=== PATIENT | female | born 1940 | race Caucasian/White ===

== ENCOUNTER → 2016-07-27 | Outpatient (CLI) | payer MEDICARE, OTHER | LOC: GMAB 11:02 | PROVIDERS: ATTEND Family Medicine | DX: E03.9 Hypothyroidism, unspecified (principal) ==

== ENCOUNTER → 2017-05-02 | Outpatient (CLI) | payer MEDICARE, OTHER | END | disposition home or self-care (01) | LOC: GMAB 11:23 | PROVIDERS: ATTEND Family Medicine | DX: M79.1 Myalgia (principal); E11.9 Type 2 diabetes mellitus without complications ==

== ENCOUNTER → 2017-08-02 | Outpatient (CLI) | payer MEDICARE, OTHER | END | disposition home or self-care (01) | LOC: GMAB 10:16 | PROVIDERS: ATTEND Family Medicine | DX: E03.9 Hypothyroidism, unspecified (principal) ==

== ENCOUNTER → 2018-08-06 | Outpatient (CLI) | payer MEDICARE, OTHER | LOC: GMAE 11:05 | PROVIDERS: ATTEND Family Medicine | DX: E03.9 Hypothyroidism, unspecified (principal) ==

== ENCOUNTER 2019-01-15 08:19 | Observation (INO) | payer MEDICARE, OTHER ==
[2019-01-15] MEDS ORDERED: ATENOLOL 25 MG TAB PO ONE (08:37)
[2019-01-15] MEDS ORDERED: ATORVASTATIN 20 MG TAB PO ONE (08:37)
[2019-01-15] MEDS ORDERED: ASPIRIN (CHEWABLE) 81 MG TAB PO ONE (08:37)
--- NOTE | 2019-01-15 08:46 | ED.PDOC ---
History of Present Illness - General Chief Complaint: Chest Pain/NC Stated Complaint: Chest tightness Time Seen by Provider: 01/15/19 08:36 Source: patient, EMS Exam Limitations: no limitations - History of Present Illness Initial Comments: patient comes in today with sudden onset of chest tightness, shortness of breath, and nausea. Patient states she's been under a lot of emotional stress and this morning she woke up and started her basic activities around the home. She had is that about 6 AM, about 30 minutes after getting up, she started having chest pressure and tightness. She states she tries to get great big deep breath but that seemed to make it worse and she experienced some nausea. She does have diabetes she decided to try to eat something and had a little piece of cheese and some milk without any improvement. She denies any reflux or heartburn. She states she's never had this sensation before although in the past she has had several episodes of SVT this does not feel the same. Patient does have diabetes mellitus, hypertension and hyperlipidemia. Patient has never had a heart attack and she's never smoked. Patient received nitroglycerin in route and states that she does not feel the sensation any longer. Timing/Duration: 1-3 hours Severity/Quality: moderate, pressure, tightness Location: substernal Chest Pain Radiation: no radiation Activities at Onset: activity, emotional stress Prior Chest Pain/Cardiac Workup: no prior chest pain Improving Factors: medication - nitro given in ambulance Worsening Factors: other - taking a deep breath Nitro Today/Relief: 0.4 mg x 1, provided by EMS, complete relief Aspirin Treatment Today: 325 mg x 1, provided by ED Associated Symptoms: nausea/vomiting, shortness of breath Allergies/Adverse Reactions: Allergies Acetaminophen [From Vicodin] Allergy (Severe, Verified 09/09/12 11:11) Amantadine [From Symmetrel] Allergy (Severe, Verified 09/09/12 11:11) Cephalexin [From Keflex] Allergy (Severe, Verified 09/09/12 11:11) Hydrocodone [From Vicodin] Allergy (Severe, Verified 09/09/12 11:11) Home Medications: Ambulatory Orders Azithromycin [Zithromax Z-Sherman] 1 ea PO DAILY #1 pack 07/06/14 Review of Systems - Review of Systems Constitutional: States: no symptoms reported. Denies: chills, fever, malaise EENTM: States: no symptoms reported. Denies: eye pain, ear pain, nose congestion, throat pain Respiratory: States: short of breath. Denies: cough, wheezing Cardiology: States: chest pain. Denies: edema, palpitations, syncope Gastrointestinal/Abdominal: States: nausea. Denies: abdominal pain, constipation, diarrhea, vomiting Genitourinary: States: no symptoms reported Musculoskeletal: States: no symptoms reported Skin: States: no symptoms reported Neurological: States: anxiety Past Medical History (General) - Patient Medical History Hx Seizures: No Hx Stroke: No Hx Dementia: No Hx Asthma: No Hx of COPD: No Hx Cardiac Disorders: Yes - High cholesterol; hx SVT Hx Congestive Heart Failure: No Hx Pacemaker: No Hx Hypertension: Yes Hx Thyroid Disease: Yes Hx Diabetes: Yes Hx Gastroesophageal Reflux: No Hx Renal Disease: No Hx Cancer: No Hx of HIV: No Hx Hepatitis C: No Hx MRSA: No Surgical History: cholecystectomy, Hysterectomy - Vaccination History Hx Influenza Vaccination: Yes - 2018 Hx Pneumococcal Vaccination: Yes - Social History Hx Tobacco Use: No Hx Alcohol Use: No Hx Substance Use: No Hx Substance Use Treatment: No Hx Depression: No Family Medical History - Family History Mother Family History: No Known Physical Exam - Physical Exam General Appearance: Alert, Anxious, Comfortable Eyes, Ears, Nose, Throat Exam: PERRL/EOMI, normal ENT inspection, TMs normal, pharynx normal Neck: non-tender, full range of motion, supple, normal inspection Respiratory: chest non-tender, lungs clear, normal breath sounds, no respiratory distress Cardiovascular/Chest: normal peripheral pulses, regular rate, rhythm, no edema, no gallop, no JVD, no murmur Peripheral Pulses: radial,right: 2+, radial,left: 2+ Gastrointestinal/Abdominal: normal bowel sounds, non tender, soft, no organomegaly Extremity: non-tender, normal inspection Neurologic: alert, oriented x 3 Skin Exam: normal color Lymphatic: no adenopathy Progress - Progress Progress: 01/15/19 09:21 patient remains asymptomatic since nitro was given en route. Explained all results reassuring and need to recheck chest xray. Plan to repeat enzymes in several hours and if normal call for observation. - Results/Orders Results/Orders: 01/15/19 08:45 EKG STAT 01/15/19 11:35 [facility] [employer] Stat Laboratory Results WBC 7.8 K/mm3 (4.8-10.8) 01/15/19 07:52 RBC 4.70 M/mm3 (4.20-5.40) 01/15/19 07:52 Hgb 14.9 gm/dL (12.0-16.0) 01/15/19 07:52 Hct 44.1 % (36.0-47.0) 01/15/19 07:52 MCV 93.8 fl (81.0-99.0) 01/15/19 07:52 MCH 31.7 pg (27.0-31.0) H 01/15/19 07:52 MCHC 33.9 g/dL (33.0-37.0) 01/15/19 07:52 RDW 13.7 % (11.5-14.5) 01/15/19 07:52 Plt Count 211 K/mm3 (130-400) 01/15/19 07:52 MPV 9.7 fl (7.40-10.4) 01/15/19 07:52 Absolute Neuts (auto) 4.00 K/uL (1.8-6.8) 01/15/19 07:52 Absolute Lymphs (auto) 3.00 K/uL (1.0-3.4) 01/15/19 07:52 Absolute Monos (auto) 0.60 K/uL (0.2-0.8) 01/15/19 07:52 Absolute Eos (auto) 0.20 K/uL (0.0-0.4) 01/15/19 07:52 Absolute Basos (auto) 0.10 K/uL (0.0-0.1) 01/15/19 07:52 Neutrophils % 51.1 % (42.0-78.0) 01/15/19 07:52 Lymphocytes % 38.3 % (20.0-50.0) 01/15/19 07:52 Monocytes % 7.6 % (2.0-9.0) 01/15/19 07:52 Eosinophils % 2.0 % (1.0-5.0) 01/15/19 07:52 Basophils % 1.0 % (0.0-2.0) 01/15/19 07:52 PT 10.4 SECONDS (9.0-10.9) 01/15/19 07:52 INR 1.04 (0.9-1.15) 01/15/19 07:52 PTT (SP) 24.9 SECONDS (21.8-31.6) 01/15/19 07:52 Sodium 138 mmol/L (135-145) 01/15/19 07:52 Potassium 3.4 mmol/L (3.6-5.0) L 01/15/19 07:52 Chloride 102 mmol/L (101-111) 01/15/19 07:52 Carbon Dioxide 26 mmol/L (21-31) 01/15/19 07:52 Anion Gap 13.4 (12-18) 01/15/19 07:52 BUN 14 mg/dL (7-18) 01/15/19 07:52 Creatinine 0.49 mg/dL (0.6-1.3) L 01/15/19 07:52 BUN/Creatinine Ratio 28.6 (10-20) H 01/15/19 07:52 Random Glucose 236 mg/dL (70-105) H 01/15/19 07:52 Serum Osmolality 283.8 mOsm/L (275-295) 01/15/19 07:52 Calcium 10.6 mg/dL (8.4-10.2) H 01/15/19 07:52 Magnesium 2.0 mg/dL (1.8-2.5) 01/15/19 07:52 Total Bilirubin 0.7 mg/dL (0.2-1.0) 01/15/19 07:52 AST 22 IU/L (10-42) 01/15/19 07:52 ALT 27 IU/L (10-60) 01/15/19 07:52 Alkaline Phosphatase 98 IU/L (42-121) 01/15/19 07:52 Creatine Kinase 37 IU/L (26-140) 01/15/19 11:35 CK-MB (CK-2) 1.8 ng/mL (0.0-4.4) 01/15/19 07:52 CK-MB (CK-2) % Not Reportable 01/15/19 07:52 Troponin I < 0.02 ng/mL (0.01-0.05) 01/15/19 11:35 Serum Total Protein 7.2 gm/dL (6.4-8.2) 01/15/19 07:52 Albumin 3.7 g/dl (3.2-5.5) 01/15/19 07:52 Globulin 3.5 gm/dL (2.3-3.5) 01/15/19 07:52 Albumin/Globulin Ratio 1.1 (1.1-1.9) 01/15/19 07:52 chest xray normal - EKG/XRAY/CT EKG: Sinus, nonspecific ST T wave Chg, Changed from - st changes improved but still present compared to 07/06 HR 66, normal axis Departure - Departure Clinical Impression: Chest pain Qualifiers: Chest pain type: unspecified Qualified Code(s): R07.9 - Chest pain, unspecified Disposition: Admit Patient Condition: Good Departure Forms: ED Discharge - Pt. Copy, Patient Portal Self Enrollment Instructions: DI for Chest Pain Diet: diabetic diet Referrals: DARLENE HENSLEY MD [Primary Care Provider] - 1-2 Weeks Home Medications: Ambulatory Orders Azithromycin [Zithromax Z-Sherman] 1 ea PO DAILY #1 pack 07/06/14 Decision To Admit - Decistion To Admit Decision to Admit Reason: Admit from ER Decision to Admit Date: 01/15/19 Decision to Admit Time: 12:18
--- NOTE | 2019-01-15 09:01 | RAD ---
EXAM DESCRIPTION: Chest,1 View CLINICAL HISTORY: 78 years Female, chest pain COMPARISON: None. TECHNIQUE: AP portable chest. FINDINGS: Fair expansion of the lungs is evident without consolidation, layering effusion, or large mass. A probable nipple shadow overlies the left lateral lung base. When able departmental PA and lateral examination recommended for repeat evaluation. Heart size and vascularity is upper range of normal without overt failure. Aorta is calcified and tortuous. No gross bony, hilar, or mediastinal abnormalities are noted. IMPRESSION: 1. Upper normal heart size and vascularity without overt failure. 2. Probable nipple shadow left lateral lung base without dense consolidation. Follow-up departmental PA and lateral study when able recommended. Electronically signed by: Stevan Parra MD 01/15/2019 8:59 AM CDT
--- NOTE | 2019-01-15 10:19 | RAD ---
EXAM DESCRIPTION: XR CHEST 2 VIEWS CLINICAL HISTORY: Abnormal radiograph. Nodular density on previous chest radiograph COMPARISON: 01/15/2019 TECHNIQUE: PA/lateral FINDINGS: Repeat study with nipple markers. The previous nodular density was indeed a nipple shadow. There are no true pulmonary parenchymal nodules Normal heart size. Mildly tortuous atherosclerotic aorta. No pulmonary edema, infiltrate or effusions. Mild hyperinflation No acute bony abnormality IMPRESSION: No pulmonary nodules or other acute cardiopulmonary process Electronically signed by: Stevan Philip MD 01/15/2019 10:17 AM CDT
--- NOTE | 2019-01-15 13:10 | HP ---
SUPERVISING PHYSICIAN: Shashank Langley MD CHIEF COMPLAINT: Chest pain. HISTORY OF PRESENT ILLNESS: This is a 78-year-old female patient who had some stressful situations that went on with her son that started about two weeks ago. She had had some car trouble and was asking her son to help with the expenses and they got into an argument. She has been stressing over the situation for about two weeks and has progressively worsened. This morning, she woke up about 5 AM and decided to clean out her closet because she has been under so much stress and was worrying about her son. It was difficult to take a deep breath, but she said there was no shortness of breath. There was no diaphoresis. The chest pain was substernal. It did not worsen with exertion. She said it was just some chest pressure and tightness. It actually got worse during the morning and she could not get a deep breath. She decided to come to the Emergency Room and her vital signs on admission showed temperature 97.1, heart rate 68, blood pressure 117/73, respiratory rate 16, O2 saturation 98% on room air. She was given a nitroglycerin en route and once she got to the Emergency Room, there were no further complaints of chest pain. There were no EKG changes and her CBC was basically unremarkable. Her PT and PTT were also within normal limits. Her electrolytes were within normal limits except potassium was slightly low at 3.4 and calcium slightly high at 10.6. Her initial cardiac enzymes were negative. About two hours later, a second set of cardiac enzymes were also negative. Chest x-ray showed no pulmonary nodules or other acute pulmonary process. I was called for hospital admission. PAST MEDICAL HISTORY: 1. Supraventricular tachycardia. 2. Diabetes mellitus, type 2. 3. Hypothyroidism. 4. Hyperlipidemia. 5. Hypertension. PAST SURGICAL HISTORY: 1. Hysterectomy. 2. Cholecystectomy. ALLERGIES: AMANTADINE, CEPHALEXIN, HYDROCODONE. SOCIAL HISTORY: She lives in [place] alone. She has a son that lives in [place]. She has one son that is . She denies any tobacco, ETOH or illicit drug use. REVIEW OF SYSTEMS: GENERAL: Negative for fever, fatigue or weight changes. HEENT: Negative for sinus symptoms, ear pain, eye pain or sore throat. RESPIRATORY: Positive for shortness of breath. Negative for wheezing, coughing. CARDIAC: Positive for chest pain, negative for palpitations or tachycardia. GASTROINTESTINAL: Negative for nausea, vomiting, diarrhea, constipation. GENITOURINARY: Negative for hematuria, dysuria or polyuria. MUSCULOSKELETAL: Negative for arthralgias, myalgias. SKIN: Negative for lesions or rashes. NEUROLOGIC: Positive for anxiety. Negative for headache, dizziness or seizures. PHYSICAL EXAMINATION: VITAL SIGNS: Temperature 97.4. Heart rate 64. Blood pressure 115/69. Respiratory rate 14. O2 saturation 95% on room air. GENERAL: This is a petite, female lying in her hospital bed. She is in no acute distress. HEENT: Normocephalic, atraumatic. Pupils are equal and reactive. Oropharynx is clear. NECK: Supple without mass. RESPIRATORY: Essentially clear to auscultation bilaterally. CHEST: There is equal rise and fall of the chest with inspiration and expiration. CARDIOVASCULAR: Regular rate and rhythm, sinus rhythm on the monitor worker. GASTROINTESTINAL: Abdomen is soft, nondistended, nontender. Bowel sounds are positive. EXTREMITIES: No cyanosis, clubbing or edema. NEUROLOGIC: Awake, alert and oriented times three. Cranial nerves II-XII are grossly intact. PSYCHIATRIC: She is anxious and at times slightly tearful. No depression or suicidal symptoms. LABORATORY: Labs and films are as per history of present illness. Her followup cardiac enzymes were negative. IMPRESSION: 1. Chest pain, rule out myocardial infarction. 2. Stress induced anxiety. 3. General anxiety disorder. 4. History of supraventricular tachycardia on Lanoxin and verapamil. 5. Hypothyroidism. 6. Diabetes mellitus, type 2, on Glyburide and metformin. PLAN: We will place the patient in Observation. I have initiated the chest pain guidelines and will do serial cardiac enzymes. I have also started her home medications including her Ativan which I have made p.r.n. I put her on a.c. and h.s. blood sugar checks with sliding scale Humalog insulin for coverage. If her cardiac enzymes remain negative, she will need a close followup with Dr. Kaiser as well as her sky diver, Dr. Atkinson. I put her on a proton pump inhibitor for ulcer prophylaxis and Lovenox for DVT prophylaxis. We will continue to monitor the patient closely and follow as needed. [id number] [facility]
[2019-01-15] MEDS ORDERED: MORPHINE SULFATE INJ 10 MG/ML VIAL IV PRN (13:26)
[2019-01-15] MEDS ORDERED: NITROGLYCERIN 0.4 MG 25 EA TAB SL PRN (13:26)
[2019-01-15] MEDS ORDERED: SODIUM CHLORIDE 0.9% (FLUSH) 10 ML SYG IV PRN (13:26)
[2019-01-15] MEDS ORDERED: ACETAMINOPHEN 325 MG TAB PO PRN (13:26)
[2019-01-15] MEDS ORDERED: IV SET AND CAP CHANGE INJ INJ SCH (13:30)
[2019-01-15] MEDS ORDERED: ENOXAPARIN SODIUM 40 MG/0.4 ML SYG SUBCU SCH (14:00)
[2019-01-15] MEDS: SODIUM CHLORIDE 0.9% (FLUSH) 10 ML SYG IV SCH ×2 (14:39→20:55)
[2019-01-15] MEDS ORDERED: LORazepam 0.5 MG TAB PO PRN (20:21)
[2019-01-15] MEDS ORDERED: metFORMIN HCL 500 MG TAB ONE (20:50)
[2019-01-15] MEDS: glyBURIDE 5 MG TAB PO SCH (20:54)
[2019-01-15] MEDS: NON-FORMULARY MEDICATION 1 EA MIS (Metformin Hcl [Glucophage] 1,000 MG) PO SCH ×2 (20:54→21:51)
[2019-01-15] MEDS ORDERED: NON-FORMULARY MEDICATION 1 EA MIS (Atorvastatin Calcium [Lipitor] 40 MG) PO SCH (21:00)
[2019-01-16] MEDS ORDERED: PANTOPRAZOLE SODIUM TAB 40 MG PO ONE (03:34)
[2019-01-16] MEDS: LEVOTHYROXINE SODIUM 0.075 MG TAB PO SCH ×2 (06:11→10:08)
[2019-01-16] MEDS ORDERED: PANTOPRAZOLE SODIUM TAB 40 MG PO SCH (06:30)
[2019-01-16] MEDS ORDERED: VERAPAMIL ER 120 MG TAB PO SCH (09:00)
[2019-01-16] MEDS ORDERED: DIGOXIN 0.25 MG TAB PO SCH (09:00)
[2019-01-16] MEDS ORDERED: DAPAGLIFLOZIN PROPANEDIOL 10 MG PO SCH (09:00)
[2019-01-16] MEDS ORDERED: ASPIRIN (ENTERIC COATED) 81 MG TAB PO SCH (09:00)
[2019-01-16] MEDS ORDERED: LISINOPRIL 5 MG TAB PO SCH (09:00)
[2019-01-16] MEDS ORDERED: ASPIRIN TABLET 325 MG TAB PO SCH (09:00)
[2019-01-16] MEDS ORDERED: metFORMIN HCL 500 MG TAB PO SCH (09:00)
[2019-01-16] MEDS: glyBURIDE 5 MG TAB PO SCH (10:08)
[2019-01-16] MEDS: SODIUM CHLORIDE 0.9% (FLUSH) 10 ML SYG IV SCH (10:08)
[2019-01-16 10:56] VITALS: BP 135/70; TEMP 98.2; O2SAT 96
[2019-01-16] MEDS ORDERED: ATORVASTATIN 20 MG TAB PO SCH (21:00)
[2019-01-17] MEDS ORDERED: TIOTROPIUM INHALER INH SCH (08:00)
--- NOTE | 2019-01-17 08:30 | DS ---
SUPERVISING PHYSICIAN: Shashank Langley MD ADMISSION DIAGNOSIS: 1. Chest pain, rule out myocardial infarction. 2. Stress induced anxiety. 3. General anxiety disorder. 4. History of supraventricular tachycardia on Lanoxin and verapamil. 5. Hypothyroidism. 6. Diabetes mellitus, type 2, on Glyburide and metformin. DISCHARGE DIAGNOSIS: 1. Chest pain without any acute findings on EKG or with negative troponins without any indication of acute injury or ischemia, possibly due to acute panic attack. 2. Stress induced anxiety, possibly causing #1. 3. General anxiety disorder resulting in exacerbation of #2 and #1. 4. History of supraventricular tachycardia on Lanoxin and verapamil, without any abnormal rhythms during hospitalization. 5. Hypothyroidism on supplementation. 6. Diabetes mellitus, type 2, on oral therapy. REASON FOR ADMISSION: This is a 78-year-old female patient who had some stressful situations that went on with her son that started about two weeks ago. She had had some car trouble and was asking her son to help with the expenses and they got into an argument. She has been stressing over the situation for about two weeks and has progressively worsened. This morning, she woke up about 5 AM and decided to clean out her closet because she has been under so much stress and was worrying about her son. It was difficult to take a deep breath, but she said there was no shortness of breath. There was no diaphoresis. The chest pain was substernal. It did not worsen with exertion. She said it was just some chest pressure and tightness. It actually got worse during the morning and she could not get a deep breath. She decided to come to the Emergency Room and her vital signs on admission showed temperature 97.1, heart rate 68, blood pressure 117/73, respiratory rate 16, O2 saturation 98% on room air. She was given a nitroglycerin en route and once she got to the Emergency Room, there were no further complaints of chest pain. There were no EKG changes and her CBC was basically unremarkable. Her PT and PTT were also within normal limits. Her electrolytes were within normal limits except potassium was slightly low at 3.4 and calcium slightly high at 10.6. Her initial cardiac enzymes were negative. About two hours later, a second set of cardiac enzymes were also negative. Chest x-ray showed no pulmonary nodules or other acute pulmonary process. The patient was placed in Observation in stable condition. LABORATORY: CBC both on admission and discharge was within normal limits except for slightly elevated MCH. Hemoglobin 13.5 and hematocrit 39.8 at discharge. Differential was without any shift. Coagulation studies showed normal PT and PTT. Chemistries showed normal electrolytes except for just a slightly low potassium at 3.4 initially and at discharge was 3.5. Creatinine 0.63, calcium 9.3 at discharge. Liver were all within normal limits both on admission and at discharge. She had four sets of troponins that were less than 0.02. Lipid panel showed triglycerides 170, cholesterol 130, LDL 74, HDL 27. RADIOLOGY: Chest x-ray prior to admission in the Emergency Room, single-view chest, showed the heart to be upper limits of normal size and vascularity without any overt failure with interpretation by Radiology. EKG: Normal sinus rhythm on admission without any acute changes compared to previous EKG on 07/06 with just nonspecific T-wave and ST changes, but no significant ST elevation or T-wave inversion to indicate ischemia or injury pattern. Normal QT interval, rate 66 beats per minute. HOSPITAL COURSE: Ms. Ramirez was placed in Observation after being seen in the Emergency Room for chest pain rule out. She had no changes in her EKG that would indicate any ischemia or injury pattern. She had no recurrence of her chest pain. She had no abnormal rhythms noted on telemetry. She was given 1 nitro in the Emergency Room on admission and Ativan with good results and decrease in her symptoms. She was quite anxious on admission. On the morning of discharge, she was ambulated without any recurrence of her symptoms, no chest pains, no shortness of breath. She was felt to be clinically stable enough to continue with outpatient management and followup with cardiology and her primary care physician. DISCHARGE ASSESSMENT: VITAL SIGNS: Temperature 98.2. Pulse 69. Blood pressure 135/70. Respirations 14. Saturation 96% on room air. GENERAL: The patient was in no acute distress. She was alert. CHEST: Lung sounds clear to auscultation. HEART: Regular rate and rhythm. ABDOMEN: Soft, nontender, positive bowel sounds. EXTREMITIES: No edema. NEUROLOGIC: Alert and oriented times 3. PLAN: Ms. Ramirez was discharged on 01/16/19 to followup with her primary care provider, Dr. Kaiser, on 01/21/19 at 14:45. She was to resume her previous medications. She will need followup with Dr. Atkinson and probably need a stress test at some point. She was told to return to the Emergency Room if she had any recurrence of her chest pains or other concerning symptoms. Her diet was diabetic diet as tolerated. Activity to increase as tolerated. Medications prescribed at discharge included Nitrostat 0.4 mg sublingual q.4 minutes x3, #1 bottle, no refills. All other medications prior to hospitalization were continued. CONDITION ON DISCHARGE: Stable and improved. DISPOSITION: The patient was discharged to care of family members. #[id number] [facility]
== END 2019-01-16 11:25 | disposition home or self-care (01) ==
LOC: ER 08:19 → MS 13:09
PROVIDERS: ADMIT Nurse Practitioner Acute Care; ATTEND Nurse Practitioner Family
DX: R07.89 Other chest pain (principal); F41.1 Generalized anxiety disorder; F43.9 Reaction to severe stress, unspecified; E87.6 Hypokalemia; I47.1 Supraventricular tachycardia; E03.9 Hypothyroidism, unspecified; E11.9 Type 2 diabetes mellitus without complications; E78.5 Hyperlipidemia, unspecified; Z79.84 Long term (current) use of oral hypoglycemic drugs; Z79.899 Other long term (current) drug therapy; Z88.5 Allergy status to narcotic agent; Z88.8 Allergy status to other drugs, medicaments and biological substances; Z90.49 Acquired absence of other specified parts of digestive tract; Z90.710 Acquired absence of both cervix and uterus
CPT/HCPCS: 96372; J1650; 82553 ×4; 80053 ×2; 80061; 36415 ×2; 85025 ×2; 82550 ×4; 83735; 85730; 85610; 84484 ×4; 71045; 71046; 94760 ×2; 99285; 93005 ×3; G0378

== ENCOUNTER → 2019-08-13 | Outpatient (CLI) | payer MEDICARE, OTHER | LOC: GMAE 10:54 | PROVIDERS: ATTEND Family Medicine | DX: E03.9 Hypothyroidism, unspecified (principal); I10 Essential (primary) hypertension; E11.9 Type 2 diabetes mellitus without complications; E78.2 Mixed hyperlipidemia ==

== ENCOUNTER 2020-02-14 07:47 | Emergency (ER) | payer MEDICARE, OTHER ==
[2020-02-14 08:13] VITALS: BP 130/71; TEMP 97.2
--- NOTE | 2020-02-14 08:17 | ED.PDOC ---
History of Present Illness - General Chief Complaint: Dental/Mouth Stated Complaint: Dental pain Time Seen by Provider: 02/14/20 08:14 Source: patient, RN notes reviewed, Vital Signs reviewed Exam Limitations: no limitations - History of Present Illness Initial Comments: 79-year-old female presenting to the emergency department with left mandibular pain. History of multiple dental infections before in the past. She has had extractions of her upper teeth, and is planning for extractions of all her lower teeth. She has not been able to get in with her dentist. Pain began 1 week ago, denies any facial swelling, fever, difficulty swallowing, shortness of breath. Allergies/Adverse Reactions: Allergies Amantadine [From Symmetrel] Allergy (Severe, Verified 01/15/19 13:39) Cephalexin [From Keflex] Allergy (Severe, Verified 01/15/19 13:39) Hydrocodone [From Vicodin] Allergy (Severe, Verified 01/15/19 13:39) Home Medications: Ambulatory Orders Aspirin [Aspirin EC] 81 mg PO DAILY 01/15/19 Atorvastatin Calcium [Lipitor] 40 mg PO BEDTIME 01/15/19 Dapagliflozin Propanediol [Farxiga] 10 mg PO DAILY 01/15/19 Digoxin [Lanoxin] 250 mcg PO DAILY 01/15/19 Glyburide 5 mg PO BID 01/15/19 LORazepam [Ativan] 0.5 mg PO BID PRN 01/15/19 Levothyroxine Sodium [Synthroid] 75 mcg PO DAILY 01/15/19 Lisinopril 5 mg PO DAILY 01/15/19 Metformin HCl [Glucophage] 500 mg PO BID 01/15/19 Verapamil HCl [Verelan] 240 mg PO DAILY 01/15/19 Nitroglycerin [Nitrostat] 0.4 mg SL Q5MIN #1 bottle 01/16/19 Amoxicillin 875 mg PO Q12HR #20 tab 02/14/20 Tramadol HCl 50 - 100 mg PO Q6HR PRN #20 tab 02/14/20 Review of Systems - Review of Systems Constitutional: Denies: chills, fever EENTM: States: mouth pain. Denies: nose pain, nose congestion, throat pain, throat swelling, mouth swelling Respiratory: Denies: cough, short of breath Past Medical History (General) - Patient Medical History Hx Seizures: No Hx Stroke: No Hx Dementia: No Hx Asthma: No Hx of COPD: No Hx Cardiac Disorders: Yes - SVT Hx Congestive Heart Failure: No Hx Pacemaker: No Hx Hypertension: Yes Hx Thyroid Disease: Yes Hx Diabetes: Yes Hx Gastroesophageal Reflux: No Hx Renal Disease: No Hx Cancer: No Hx of HIV: No Hx Hepatitis C: No Hx MRSA: No Surgical History: cholecystectomy, Hysterectomy - Vaccination History Hx Influenza Vaccination: Yes Hx Pneumococcal Vaccination: Yes - Social History Hx Tobacco Use: No Hx Alcohol Use: No Hx Substance Use: No Hx Substance Use Treatment: No Hx Depression: No Hx Physical Abuse: No Hx Emotional Abuse: No Family Medical History - Family History Mother Family History: No Known Physical Exam - Physical Exam General Appearance: Alert, Comfortable, No apparent distress Nasal Exam: normal inspection Throat Exam: dental tenderness - Multiple missing teeth, extensive dental caries, tenderness adjacent to #21. There is no obvious dental abscess, no facial swelling. There is no submental induration, sublingual fullness, or difficulty swallowing. Airway is widely patent. Neck: non-tender, full range of motion Cardiovascular/Respiratory: regular rate, rhythm, no M/R/G Neurologic: alert, oriented x 3 Skin Exam: normal color, warm/dry Progress - Progress Progress: DDX: pulpitis, dental abscess, dental caries [facility] #[id number] Departure - Departure Clinical Impression: Acute facial pain, Acute pulpitis, Dental caries Disposition: Discharge to Home or Self Care Condition: Good Departure Forms: ED Discharge - Pt. Copy, Patient Portal Self Enrollment Instructions: DI for Mouth Pain, Dental Pain (DC) Referrals: DARLENE HENSLEY MD [Primary Care Provider] - 1-2 Weeks Prescriptions: Tramadol HCl 50 - 100 mg PO Q6HR PRN #20 tab PRN Reason: Moderate To Severe Pain Amoxicillin 875 mg PO Q12HR #20 tab Home Medications: Ambulatory Orders Aspirin [Aspirin EC] 81 mg PO DAILY 01/15/19 Atorvastatin Calcium [Lipitor] 40 mg PO BEDTIME 01/15/19 Dapagliflozin Propanediol [Farxiga] 10 mg PO DAILY 01/15/19 Digoxin [Lanoxin] 250 mcg PO DAILY 01/15/19 Glyburide 5 mg PO BID 01/15/19 LORazepam [Ativan] 0.5 mg PO BID PRN 01/15/19 Levothyroxine Sodium [Synthroid] 75 mcg PO DAILY 01/15/19 Lisinopril 5 mg PO DAILY 01/15/19 Metformin HCl [Glucophage] 500 mg PO BID 01/15/19 Verapamil HCl [Verelan] 240 mg PO DAILY 01/15/19 Nitroglycerin [Nitrostat] 0.4 mg SL Q5MIN #1 bottle 01/16/19 Amoxicillin 875 mg PO Q12HR #20 tab 02/14/20 Tramadol HCl 50 - 100 mg PO Q6HR PRN #20 tab 02/14/20 Additional Instructions: Follow-up with your dentist as soon as possible to discuss completion of whole mouth extraction. Return to the emergency room immediately for worsening pain, fever, facial swelling, difficulty swallowing, or any other concerns.
[2020-02-14 08:28] VITALS: O2SAT 96
== END 2020-02-14 08:33 | disposition home or self-care (01) ==
LOC: ER 07:47
DX: K04.01 Reversible pulpitis (principal); K02.9 Dental caries, unspecified; R51 Headache; K08.109 Complete loss of teeth, unspecified cause, unspecified class; I10 Essential (primary) hypertension; E07.9 Disorder of thyroid, unspecified; E11.9 Type 2 diabetes mellitus without complications; Z79.899 Other long term (current) drug therapy; Z79.84 Long term (current) use of oral hypoglycemic drugs; Z79.82 Long term (current) use of aspirin; Z88.8 Allergy status to other drugs, medicaments and biological substances; Z88.1 Allergy status to other antibiotic agents; Z88.5 Allergy status to narcotic agent

== ENCOUNTER → 2020-08-19 | Outpatient (CLI) | payer MEDICARE, OTHER | LOC: GMAE 11:28 | PROVIDERS: ATTEND Family Medicine | DX: E78.2 Mixed hyperlipidemia (principal); E03.9 Hypothyroidism, unspecified; E11.9 Type 2 diabetes mellitus without complications; I10 Essential (primary) hypertension; Z79.899 Other long term (current) drug therapy ==